=== PATIENT | male | born 1935 | race Caucasian/White ===

== ENCOUNTER 2016-11-23 10:09 | Day surgery (SDC) | payer OTHER ==
[~2016-11-23 10:09] MED LIST: ATOR10TA PO; COUM5TAB PO; LEVA500T PO
[2016-11-23 10:37] VITALS: BP 145/72; PULSE 67; RESP 14; TEMP 97.6; O2SAT 94
[2016-11-23 11:10] VITALS: BP 156/71; PULSE 64; RESP 18; TEMP 98; O2SAT 95
[2016-11-23 11:25] VITALS: BP 151/74; PULSE 65; RESP 18; O2SAT 94
[2016-11-23] MEDS ORDERED: SODIUM BICARBONATE 8.4% INJ 50 ML ONE (12:52)
[2016-11-23] MEDS ORDERED: LIDOCAINE HCL 1% PF 30 ML VIAL ONE (12:52)
[2016-11-23 13:59] LABS: WBC, SYNOVIAL FLUID 1440 /MM3 (0-200)
--- NOTE | 2016-11-23 15:56 | RADRPT ---
EXAM DATE/TIME: 11/23/2016 10:41 [facility] COMPARISON: No previous studies available for comparison. EXTERNAL COMPARISON: [facility], CT RIGHT HIP W/O CONTRAST, Nov 06 2016. INDICATIONS: Right hip effusion. MEDICAL HISTORY: Hypertension. Skin cancer. SURGICAL HISTORY: Pacemaker. Bilateral hip replacement. ENCOUNTER: Initial ACUITY: 1 day PAIN SCORE: 0/10 LOCATION: Right hip. FLUID: Total volume of 4 cc of clear, yellow fluid was removed. Fluid was sent to lab for ordered studies. Post procedure scanning reveals no hematoma or other complication. TECHNIQUE: 1. Ultrasound guidance for needle aspiration. 2. Aspiration. The risks, benefits, and alternatives to ultrasound guided aspiration were explained to the patient i n detail including the risk of bleeding and infection. Written and verbal informed consent was obtai edmund. Under direct ultrasound visualization a 20-gauge needle was placed into the Schmorl's bursal fluid co llection and 5 cc of clear yellow fluid were removed and sent for ordered studies. Office scan revea ls no evidence for hematoma. CONCLUSION: Mr. Serna will talk to his primary care doctor about how to restart his Coumadin which should be r estarted today. Ten Gibson MD FACR on November 23, 2016 at 12:53 Board Certified Radiologist. This report was verified electronically.
== END 2016-11-23 11:55 | disposition home or self-care (01) ==
LOC: HRAD 10:09 → HRIP 10:10 → HRAD 11:55
PROVIDERS: ATTEND Orthopaedic Surgery
DX: M25.451 Effusion, right hip (principal); Z79.01 Long term (current) use of anticoagulants; I10 Essential (primary) hypertension; Z85.828 Personal history of other malignant neoplasm of skin
CPT/HCPCS: 10160; 76942; 87070; 87205; 89051; 89060

== ENCOUNTER 2017-02-25 12:14 | Inpatient (IN) | payer OTHER, MEDICARE ==
[~2017-02-25] VITALS: Ht 175.3 cm; Wt 103.6 kg
[2017-03-12] MEDS ORDERED: WARF-58 PO (14:42)
[2017-03-12] MEDS ORDERED: WARF-20 PO (14:42)
[2017-03-12] MEDS ORDERED: ATOR10TA15 PO (14:42)
[2017-03-13] MEDS ORDERED: BUPIVACAINE LIPOSOME PF 1.3% 20 ML VIAL ONE (07:46)
[2017-03-13] MEDS ORDERED: SODIUM CHLORID 0.9% 500 ML IV PRN (08:30)
[2017-03-13] MEDS ORDERED: METOPROLOL TARTRATE 25 MG TAB PO PRN (08:30)
[2017-03-13] MEDS ORDERED: POVIDONE IODINE 5% (ANTISEPSIS KIT) 4 APPLICATIONS EACH NARE PRN (08:30)
[2017-03-13] MEDS ORDERED: INSULIN HUMAN REGULAR 1,000 UNITS/10 ML VIAL SQ PRN (08:30)
[2017-03-13] MEDS ORDERED: CHLORHEXIDINE GLUCONATE 2 % 1 PACK (2 CLOTHS) TOPICAL PRN (08:30)
[2017-03-13] MEDS ORDERED: LACTATED RINGER'S 1000 ML IV PRN (08:30)
[2017-03-13] MEDS ORDERED: ENOX100P SQ (08:36)
[2017-03-13 08:37] VITALS: BP 152/65; PULSE 68; RESP 20; TEMP 98; O2SAT 95
[2017-03-13 08:54] LABS: INTERNATIONAL NORMALIZED RATIO 1.1 RATIO; PROTHROMBIN TIME - PATIENT 12.1 SEC (9.8-11.6)
[2017-03-13] MEDS ORDERED: ceFAZolin 2 GM PREMIX 50 ML ONE (08:56)
[2017-03-13] MEDS ORDERED: SODIUM CHLORIDE 0.9% INJ 100 ML ONE (08:56)
[2017-03-13] MEDS ORDERED: VANCOMYCIN HCL 1000 MG VIAL ONE (08:56)
[2017-03-13] MEDS ORDERED: DEXAMETHASONE SOD PHOS 20 MG/5 ML VIAL ONE (08:56)
[2017-03-13] MEDS ORDERED: SODIUM CHLORIDE 0.9% IV SCH ×2 (09:30→15:00)
[2017-03-13] MEDS ORDERED: ROPIVACAINE PERI-ARTICULAR INJECTION. P-ARTICULR SCH ×5 (09:30)
[2017-03-13] MEDS ORDERED: VANCOMYCIN 1000 MG/NS 250 ML (for <70 kg) IV SCH ×2 (09:30)
[2017-03-13] MEDS ORDERED: CHLORHEXIDINE GLUCONATE 4% SOLN 120 ML BTL TOPICAL SCH (09:30)
[2017-03-13] MEDS ORDERED: POVIDONE IODINE 7.5% SCRUB 118 ML BOTTLE TOPICAL SCH (09:30)
[2017-03-13] MEDS ORDERED: TRANEXAMIC ACID IV SCH ×2 (09:30→15:00)
[2017-03-13] MEDS ORDERED: ceFAZolin 2 GM PREMIX 50 ML IV SCH (09:30)
[2017-03-13] MEDS ORDERED: PROPOFOL 200 MG/20 ML AMP IV ONE (09:33)
[2017-03-13] MEDS ORDERED: ONDANSETRON HCL 4 MG/2 ML VIAL IV PUSH ONE (09:34)
[2017-03-13] MEDS ORDERED: LACTATED RINGER'S 1000 ML INJ 2,000 ML IV ONE (09:34)
[2017-03-13] MEDS ORDERED: DEXAMETHASONE SOD PHOS 20 MG/5 ML VIAL IV ONE (10:00)
[2017-03-13] MEDS ORDERED: ACETAMINOPHEN 1000 MG/100 ML VIAL IV ONE (11:35)
[2017-03-13] MEDS ORDERED: FAMOTIDINE 20 MG/2 ML VIAL ONE (11:35)
[2017-03-13] MEDS ORDERED: GENTAMICIN SULFATE 80 MG/2 ML VIAL IRRIGATION ONE (12:39)
[2017-03-13] MEDS: SODIUM CHLOR 0.9% 1000 ML INJ 1,000 ML IV SCH (13:43)
[2017-03-13] MEDS ORDERED: diphenhydrAMINE HCL 50 MG/ML VIAL IV PRN (13:45)
[2017-03-13] MEDS ORDERED: ACETAMINOPHEN/HYDROcodone 325 MG/5 MG TAB PO PRN (13:45)
[2017-03-13] MEDS ORDERED: MAGNESIUM HYDROXIDE SUSP 30 ML CUP PO PRN (13:45)
[2017-03-13] MEDS ORDERED: Post-op Orders (for Pharmacy) MISC XX ONE (13:45)
[2017-03-13] MEDS ORDERED: MORPHINE SULFATE 4 MG/ML INJ IV PUSH PRN (13:45)
[2017-03-13] MEDS ORDERED: ALUMINUM/MAGNESIUM/SIMETH 30 ML CUP PO PRN (13:45)
[2017-03-13] MEDS ORDERED: NALOXONE HCL 0.4 MG/ML AMP IV PRN (13:45)
[2017-03-13] MEDS ORDERED: ONDANSETRON HCL 4 MG/2 ML VIAL IVP PRN (13:45)
[2017-03-13] MEDS ORDERED: BISACODYL 10 MG SUPP RECTAL PRN (13:45)
[2017-03-13] MEDS ORDERED: ZOLPIDEM TARTRATE 5 MG TAB PO PRN (13:45)
[2017-03-13] MEDS ORDERED: SODIUM CHLORIDE 0.9% FLUSH 5 ML FLUSH IVF PRN (13:45)
--- NOTE | 2017-03-13 13:48 | PD.OP ---
cc: Richie Padilla MD Operative Report Date of Surgery: March 13, 2017 Preoperative Diagnosis: Right knee severe osteoarthritis Postoperative Diagnosis: Same Procedure: Right total knee arthroplasty Anesthesia: Adductor canal block and general Surgeon: Richie Padilla Horse Identifier(s): PHILIP Gill The surgical procedure was assisted by my Advanced Registered Nurse Practitioner. My COREMAKER presence was necessary throughout this case for the manipulation and positioning of the surgical extremity. My COREMAKER was assisting me throughout the duration of this procedure. The skill set of an Advance Registered Nurse Practitioner was medically necessary to complete this procedure. During the surgical case, the surgical garment assembler was working at the back table and the Advance Registered Nurse Practitioner was directly assisting me. Operation and Findings: IMPLANTS: DePuy Attune: Patella: size 35. Femur, posterior stabilized size 5. Tibia, rotating platform size 5. Tibial insert, rotating platform, posterior stabilized size 7 mm thickness. ESTIMATED BLOOD LOSS: 150 cc TOURNIQUET TIME: 42 minutes at 250 mmHg pressure. JUSTIFICATION FOR PROCEDURE: The patient has end-stage osteoarthritis to the knee. There is an attached conservative measures pathway form in the chart that describes the nonoperative measures that were undertaken prior to consideration of surgical management. The patient understood the risks and benefits of surgical management. See my office notes for further details PROCEDURE: The patient was brought back to the operative theatre. Adequate anesthesia was obtained. The patient received intravenous vancomycin and Ancef. The lower extremity was prepped and draped in the usual sterile fashion.The leg was exsanguinated, the tourniquet was raised. A standard anterior incision was performed followed by medial parapatellar arthrotomy was performed. End-stage arthritis was identified. Osteotomy of the patella was performed. We drilled holes for the patella. We trialed the patella component. We placed an intramedullary guide into the distal femur. We ultimately resected 13 mm off of the distal femur in 5 degrees of valgus. The remnants of the ACL and PCL were resected. Osteotomy of the proximal tibia was performed, resecting 7 mm off of the medial side. This was done with 3 degrees of posterior slope using an extramedullary guide. The distal end of the guide was placed in the mid aspect of the ankle. The femur was sized, and four chamfer cuts were completed in 3 of external rotation. We then cut the central box in the distal femur to replace the PCL. We resected the remnants of the menisci and removed osteophytes off of the femur and tibia. We then trialed the knee. We punched the tibia for the keel, and then used standard technique to cement in components. Excess cement was removed. We trialed the knee again and the final polyethylene thickness was chosen to provide extension to 0 degrees, and flexion of 140 degrees to gravity. The ligaments were appropriately balanced after recessing the popliteus tendon due to tightness on the lateral side. Lateral release was not necessary to obtain excellent patellofemoral tracking. The tourniquet was released and adequate hemostasis was obtained. An intra- articular injection of a ropivacaine cocktail was injected. The posterior knee was inspected for excess cement, which was removed. The final polyethylene was put into position after thorough irrigation. We then closed deep fascia with a #2 Stratafix followed by skin with 2-0 Vicryl followed by gareth. Postop plan is to weight-bear as tolerated. DVT prophylaxis will be performed with SCDs, MAURA cook, early mobilization, and resuming outpatient Coumadin along with a bridging Lovenox of Lovenox 40 mg daily. The Lovenox will be stopped when the INR is equal to or greater than 2. Richie Padilla MD March 13, 2017 13:48
[2017-03-13] MEDS ORDERED: NORC5TAB PO (13:50)
[2017-03-13] MEDS ORDERED: ENOX40P SQ (13:50)
[2017-03-13] MEDS ORDERED: DO NOT ADM ANY ANTICOAGULANT DRUGS PRN (14:14)
[2017-03-13] MEDS ORDERED: *morphine SULFATE 8 MG/ML PERIprocedure ONLY ONE ×3 (14:19→14:45)
[2017-03-13] MEDS ORDERED: fentaNYL CITRATE 250 MCG/5 ML AMP ONE (14:22)
[2017-03-13] MEDS ORDERED: MIDAZOLAM HCL 2 MG/2 ML VIAL ONE (14:22)
--- NOTE | 2017-03-13 14:56 | RADRPT ---
EXAM DATE/TIME: 03/13/2017 14:35 [facility] COMPARISON: No previous studies available for comparison. INDICATIONS : Right total knee prosthesis. MEDICAL HISTORY : Hypertension. Carcinoma, basal cell. SURGICAL HISTORY : Pacemaker. bilat hip replacement ENCOUNTER: Initial ACUITY: 1 day PAIN SCORE: 3/10 LOCATION: Right knee FINDINGS: Two view examination of the right knee demonstrates no evidence of fracture or dislocation. Right kne e arthroplasty. Postsurgical changes. No hardware loosening. CONCLUSION: Right knee arthroplasty. Ang Goncalves MD on March 13, 2017 at 14:54 Board Certified Radiologist. This report was verified electronically.
[2017-03-13] MEDS ORDERED: *HYDROmorphone PF 1 MG VIAL PERIprocedural Use ONLY ONE ×2 (14:57→15:26)
[2017-03-13] MEDS: WARFARIN SOD 3 MG TAB PO SCH (17:29)
--- NOTE | 2017-03-13 17:39 | PD.CONS ---
HPI Service [facility] Consult Requested By Dr Padilla Reason for Consult medical management Primary Care Physician Slava Garcia Do, MD Diagnoses: History of Present Illness 81 yo male, with PMH of HTN, HLD, Afib with PM in 2009, OA. Patient came to same day surgery for right knee surgery. He denies having any chest pain, sob, n /v/d/c. No urinary complaints. Doesn't have any pain at this time. Review of Systems Except as stated in HPI: all other systems reviewed are Neg Past Family Social History Allergies: Coded Allergies: Latex (Verified Allergy, Severe, Hives, ITCHING, 03/13/17) Past Medical History Afib with PM placement HLD Past Surgical History Bilateral hip surgery AICD placement Reported Medications Reported Meds & Active Scripts Active Lovenox Inj (Enoxaparin Sodium) 40 Mg/0.4 Ml Syr 40 Mg SQ DAILY Stop Lovenox when INR is = or > than 2 [place] (Hydrocodone-Acetaminophen) 5-325 mg Tab 1-2 Tab PO Q4H PRN Reported Lovenox Inj (Enoxaparin Sodium) 100 Mg/Ml Syr 95 Mg SQ Q12HR Warfarin 3 Mg Tab 3 Mg PO MOWEFR Warfarin 4 Mg Tab 4 Mg PO TUTHSASU Atorvastatin (Atorvastatin Calcium) 10 Mg Tab 10 Mg PO HS Family History Says he was adopted and not in tough with his biological parents and siblings Social History Quit smoking 40 years ago. used to smoke 10 cig.day for 10 years Quit ETOH use 30 years ago use to drink beer (1/2 pack daily) Denies illicit drug use. Physical Exam Vital Signs Vital Signs Date Time Temp Pulse Resp B/P Pulse Ox O2 Delivery O2 Flow Rate FiO2 03/13/17 14:45 82 16 141/68 95 Nasal Cannula 2 03/13/17 14:30 79 16 144/71 94 Nasal Cannula 2 03/13/17 14:15 78 16 144/65 93 Nasal Cannula 2 03/13/17 14:12 97.4 82 16 144/62 93 Nasal Cannula 2 03/13/17 08:37 98.0 68 20 152/65 95 Physical Exam GENERAL: This is a very pleasant 81 yo male, well-nourished, well-developed patient, in no apparent distress. SKIN: No rashes, ecchymoses or lesions. Cool and dry. HEAD: Atraumatic. Normocephalic. No temporal or scalp tenderness. EYES: Pupils equal round and reactive. Extraocular motions intact. No scleral icterus. No injection or drainage. ENT: Nose without bleeding, purulent drainage or septal hematoma. Throat without erythema, tonsillar hypertrophy or exudate. Uvula midline. Airway patent. NECK: Trachea midline. No JVD or lymphadenopathy. Supple, nontender, no meningeal signs. CARDIOVASCULAR: Regular rate and rhythm without murmurs, gallops, or rubs. RESPIRATORY: PM in the upper right chest. Clear to auscultation. Breath sounds equal bilaterally. No wheezes, rales, or rhonchi. GASTROINTESTINAL: Abdomen soft, non-tender, nondistended. No hepato-splenomegaly , or palpable masses. No guarding. MUSCULOSKELETAL: S/P right knee surgery. Extremities without clubbing, cyanosis , or edema. No joint tenderness, effusion, or edema noted. No calf tenderness. Negative Homans sign bilaterally. NEUROLOGICAL: Awake and alert. Cranial nerves II through XII intact. Motor and sensory grossly within normal limits. Five out of 5 muscle strength in all muscle groups. Normal speech. Laboratory Laboratory Tests Test 03/13/17 08:28 Prothrombin Time 12.1 Prothromb Time International 1.1 Ratio Blood Type O POSITIVE Antibody Screen NEGATIVE Imaging Last Impressions Knee X-Ray 03/13/17 1343 Signed Impressions: Service Date/Time: Monday, March 13, 2017 14:35 - CONCLUSION: Right knee arthroplasty. Ang Goncalves MD Assessment and Plan Assessment and Plan 81 yo male with: Right knee OA s/p right knee arthroplasty by Dr Randy amos . Management per Dr Padilla. Afib with PM placement 2009. Patient is stable. Coumadin on hold as patient had surgery restart when OK by surgeon HLD: restart atorvastatin. DVT ppx : SCD/teds, restart coumadin when ok per surgeon. Discussed Condition With patient, nurse Caitie Calderon MD March 13, 2017 17:39
[2017-03-13] MEDS ORDERED: ENALAPRILAT 2.5 MG/2 ML VIAL IV PUSH PRN (18:30)
[2017-03-13 19:00] VITALS: BP 158/86; PULSE 84; RESP 20; TEMP 96.9; O2SAT 97
--- NOTE | 2017-03-13 20:16 | HHI.DCPOC ---
Discharge Care Plan Diagnosis: (1) Primary localized osteoarthrosis, lower leg (2) Status post total knee replacement, right Your Health Problems Are: Difficulty with ADL Goals to Promote Your Health * To prevent worsening of your condition and complications * To maintain your health at the optimal level Directions to Meet Your Goals Take your medications as prescribed Follow your dietary instruction Follow activity as directed Keep your appointments as scheduled Take your immunizations and boosters as scheduled If your symptoms worsen call your PCP, if no PCP go to Urgent Care Center or Emergency Room Smoking is Dangerous to Your Health. Avoid second hand smoke Call the 24-hour hour crisis hotline for domestic abuse at Henrique Putnam March 13, 2017 20:16
--- NOTE | 2017-03-13 20:18 | HHI.FF ---
Face to Face Verification Diagnosis: (1) Primary localized osteoarthrosis, lower leg (2) Status post total knee replacement, right Physical Therapy Gait training, Transfer training, bed to chair Knee: Total knee Right LE Weight Bearing: WB as tolerated Right LE Range of Motion: Active ROM Nursing Nursing: Dressing changes Dressing Changes: Daily dressing change Additional Instructions Patient will continue his Warfarin but will bridge with Lovenox until INR is > 2 I have seen patient Douglas Serna on 03/13/17. My clinical findings support the need for the requested home health care services because: Limited ability to care for self High risk of falls I certify that my clinical findings support that this patient is homebound because: Post-op weakness Unsteady gait/balance Henrique Putnam March 13, 2017 20:18
[2017-03-13] MEDS ORDERED: CPMMACHINE (20:21)
[2017-03-13] MEDS: ATORVASTATIN 10 MG TAB PO SCH (21:02)
[2017-03-13] MEDS: SODIUM CHLORIDE 0.9% FLUSH 5 ML FLUSH IVF SCH (21:03)
[2017-03-14] VITALS (7 sets, daily range): BP systolic 112–125; BP diastolic 51–69; PULSE 56–84; RESP 16–18; TEMP 96.2–98.3; O2SAT 95–97
[2017-03-14] MEDS: SODIUM CHLOR 0.9% 1000 ML INJ 1,000 ML IV SCH ×3 (04:38→19:43)
[2017-03-14 05:48] LABS: HEMATOCRIT 38.3 % (39.0-51.0); MEAN CELL VOLUME 84.8 FL (80.0-100.0); PLATELET COUNT 189 TH/MM3 (150-450); RED BLOOD COUNT 4.51 MIL/MM3 (4.50-5.90); RED CELL DISTRIBUTION WIDTH 14.1 % (11.6-17.2); REVIEW FLAG FINAL; WHITE BLOOD COUNT 18.6 TH/MM3 (4.0-11.0)
[2017-03-14 05:59] LABS: INTERNATIONAL NORMALIZED RATIO 1.1 RATIO; PROTHROMBIN TIME - PATIENT 11.7 SEC (9.8-11.6)
[2017-03-14] MEDS ORDERED: DEXAMETHASONE SOD PHOS 20 MG/5 ML VIAL IV ONE (07:45)
[2017-03-14] MEDS: SODIUM CHLORIDE 0.9% FLUSH 5 ML FLUSH IVF SCH ×2 (09:00→21:00)
[2017-03-14] MEDS: ACETAMINOPHEN/HYDROcodone 325 MG/5 MG TAB PO PRN (09:11)
--- NOTE | 2017-03-14 12:04 | PD.ORT.PN ---
Subjective Post Op Day #: 1 Subjective Remarks The patient is OOB in chair with at bedside. Patient reports minimal pain today. Patient states he is planning to go to SNF. Objective Vitals Vital Signs Date Time Temp Pulse Resp B/P Pulse Ox O2 Delivery O2 Flow Rate FiO2 03/14/17 08:00 98.3 84 18 121/55 95 03/14/17 04:00 96.2 56 16 113/51 97 03/14/17 00:00 96.8 65 17 112/68 96 03/13/17 19:00 96.9 84 20 158/86 97 03/13/17 18:00 79 16 154/69 95 Nasal Cannula 2 03/13/17 14:45 82 16 141/68 95 Nasal Cannula 2 03/13/17 14:30 79 16 144/71 94 Nasal Cannula 2 03/13/17 14:15 78 16 144/65 93 Nasal Cannula 2 03/13/17 14:12 97.4 82 16 144/62 93 Nasal Cannula 2 I/O 03/13/17 03/13/17 03/13/17 03/14/17 03/14/17 03/14/17 07:00 15:00 23:00 07:00 15:00 23:00 Intake Total 1350 ml 1753 ml 1245 ml Output Total 475 ml 400 ml 300 ml Balance 875 ml 1353 ml 945 ml Intake Oral 630 ml 480 ml IV Total 1123 ml 765 ml Other 1350 ml Output Urine Total 400 ml 300 ml Estimated Blood Loss 25 ml Other 450 ml # Voids 1 # Bowel Movements 0 0 Result Diagram: 03/14/17 0524 Other Results Laboratory Tests Test 03/14/17 05:24 Prothrombin Time 11.7 SEC (9.8-11.6) Prothromb Time International 1.1 RATIO Ratio Imaging Last 24 hours Impressions Knee X-Ray 03/13/17 1343 Signed Impressions: Service Date/Time: Monday, March 13, 2017 14:35 - CONCLUSION: Right knee arthroplasty. Ang Goncalves MD Procedures Right TKA Objective Remarks The patient's dressings are C/D/I. EHL/TA/G intact. 2+ pedal pulse. Calf is soft and nontender. Minimal swelling. + SILT. INR: 1.1 today Assessment & Plan Ortho Post Op Day #: 1 Problem List: Assessment and Plan POD #1: Right TKA 1. WBAT RLE 2. Resume coumadin for DVT prophylaxis along with a Lovenox bridge. Will discontinue Lovenox when INR >2. 3. Ice to the right knee PRN 4. Anticipatory discharge to SNF on Saturday. Henrique Putnam March 14, 2017 12:04
[2017-03-14] MEDS ORDERED: WALKER WHEELS/F1 MIS (12:36)
[2017-03-14] MEDS ORDERED: COMMODE 3-IN-11 MIS (12:36)
[2017-03-14] MEDS: ENOXAPARIN SODIUM 40 MG/0.4 ML SYRINGE SQ SCH (13:00)
--- NOTE | 2017-03-14 13:58 | HHI.PR ---
Subjective Remarks Follow-up total knee arthroplasty. States he is doing well out of bed to chair pain is tolerable. He has a leukocytosis of 18,000 denies fever, chills, cough , nausea, abdominal pain, diarrhea and UTI symptoms. Seen with . Discussed with RN Objective Vitals Vital Signs Date Time Temp Pulse Resp B/P Pulse Ox O2 Delivery O2 Flow Rate FiO2 03/14/17 12:00 96.8 66 16 123/62 96 03/14/17 08:00 98.3 84 18 121/55 95 03/14/17 04:00 96.2 56 16 113/51 97 03/14/17 00:00 96.8 65 17 112/68 96 03/13/17 19:00 96.9 84 20 158/86 97 03/13/17 18:00 79 16 154/69 95 Nasal Cannula 2 03/13/17 14:45 82 16 141/68 95 Nasal Cannula 2 03/13/17 14:30 79 16 144/71 94 Nasal Cannula 2 03/13/17 14:15 78 16 144/65 93 Nasal Cannula 2 03/13/17 14:12 97.4 82 16 144/62 93 Nasal Cannula 2 I/O 03/13/17 03/13/17 03/13/17 03/14/17 03/14/17 03/14/17 07:00 15:00 23:00 07:00 15:00 23:00 Intake Total 1350 ml 1753 ml 1245 ml Output Total 475 ml 400 ml 300 ml Balance 875 ml 1353 ml 945 ml Intake Oral 630 ml 480 ml IV Total 1123 ml 765 ml Other 1350 ml Output Urine Total 400 ml 300 ml Estimated Blood Loss 25 ml Other 450 ml # Voids 1 # Bowel Movements 0 0 Result Diagram: 03/14/17 0524 Imaging Last Impressions Knee X-Ray 03/13/17 1343 Signed Impressions: Service Date/Time: Monday, March 13, 2017 14:35 - CONCLUSION: Right knee arthroplasty. Ang Goncalves MD Objective Remarks GENERAL: This is a very pleasant 81 yo male, well-nourished, well-developed patient, in no apparent distress. SKIN: No rashes, ecchymoses or lesions. Cool and dry. HEAD: Atraumatic. Normocephalic. No temporal or scalp tenderness. EYES: Pupils equal round and reactive. Extraocular motions intact. No scleral icterus. No injection or drainage. ENT: Nose without bleeding, purulent drainage or septal hematoma. Throat without erythema, tonsillar hypertrophy or exudate. Uvula midline. Airway patent. NECK: Trachea midline. No JVD or lymphadenopathy. Supple, nontender, no meningeal signs. CARDIOVASCULAR: Regular rate and rhythm without murmurs, gallops, or rubs. RESPIRATORY: PM in the upper right chest. Clear to auscultation. Breath sounds equal bilaterally. No wheezes, rales, or rhonchi. GASTROINTESTINAL: Abdomen soft, non-tender, nondistended. No hepato-splenomegaly , or palpable masses. No guarding. MUSCULOSKELETAL: S/P right knee surgery. Extremities without clubbing, cyanosis , or edema. No joint tenderness, effusion, or edema noted. No calf tenderness. Negative Homans sign bilaterally. NEUROLOGICAL: Awake and alert. Cranial nerves II through XII intact. Motor and sensory grossly within normal limits. Five out of 5 muscle strength in all muscle groups. Normal speech. Nonfocal A/P Problem List: (1) Primary localized osteoarthrosis, lower leg ICD Code: M17.10 Status: Acute (2) Status post total knee replacement, right ICD Code: Z96.651 Status: Acute Assessment and Plan 81 yo male with: Right knee OA s/p right knee arthroplasty by Dr Randy amos . Stable continue postoperative care with physical therapy, wound care, incentive spirometry, pain management with hydrocodone and DVT prophylaxis with Coumadin. Management per Dr Padilla. Leukocytosis likely reactive. Monitor for infection check temperature. Repeat CBC in the morning. Afib with PM placement 2009. Patient is stable. Continue Coumadin RN to clarify with orthopedic surgery therapeutic range for INR prefer to be between 2 and 3 HLD: restart atorvastatin. DVT ppx : SCD/teds, Coumadin. Shankar Gallo MD March 14, 2017 13:58 Assessment and Plan 81 yo male with: Right knee OA s/p right knee arthroplasty by Dr Randy amos . Management per Dr Padilla. Afib with PM placement 2009. Patient is stable. Coumadin on hold as patient had surgery restart when OK by surgeon HLD: restart atorvastatin. DVT ppx : SCD/teds, restart coumadin when ok per surgeon. Shankar Gallo MD March 14, 2017 13:58
[2017-03-14] MEDS ORDERED: WARFARIN SOD 4 MG TAB PO SCH (16:00)
[2017-03-14] MEDS: DOCUSATE SODIUM 100 MG CAP PO SCH (22:02)
[2017-03-14] MEDS: MULTIVITAMINS/MINERALS THERAPEUTIC TAB PO SCH (22:02)
[2017-03-14] MEDS: ATORVASTATIN 10 MG TAB PO SCH (22:02)
[2017-03-15] VITALS: BP 123/65; PULSE 67; RESP 17; TEMP 99.3; O2SAT 93
[2017-03-15] MEDS: SODIUM CHLOR 0.9% 1000 ML INJ 1,000 ML IV SCH ×3 (02:07→20:05)
[2017-03-15 06:49] LABS: INTERNATIONAL NORMALIZED RATIO 1.1 RATIO; PROTHROMBIN TIME - PATIENT 11.9 SEC (9.8-11.6)
[2017-03-15 06:51] LABS: HEMATOCRIT 36.2 % (39.0-51.0); MEAN CELL VOLUME 85.8 FL (80.0-100.0); MEAN CORPUSCULAR HEMOGLOBIN 27.6 PG (27.0-34.0); MEAN CORPUSCULAR HGB CONC 32.2 % (32.0-36.0); PLATELET COUNT 162 TH/MM3 (150-450); RED BLOOD COUNT 4.22 MIL/MM3 (4.50-5.90); RED CELL DISTRIBUTION WIDTH 14.3 % (11.6-17.2); REVIEW FLAG FINAL; WHITE BLOOD COUNT 12.4 TH/MM3 (4.0-11.0)
[2017-03-15 08:00] VITALS: BP 109/48; PULSE 59; RESP 16; TEMP 97.4; O2SAT 94
[2017-03-15] MEDS: DOCUSATE SODIUM 100 MG CAP PO SCH ×2 (08:39→20:02)
[2017-03-15] MEDS: ACETAMINOPHEN/HYDROcodone 325 MG/5 MG TAB PO PRN ×3 (08:39→15:55)
[2017-03-15] MEDS: MULTIVITAMINS/MINERALS THERAPEUTIC TAB PO SCH ×2 (08:39→20:03)
[2017-03-15] MEDS: SODIUM CHLORIDE 0.9% FLUSH 5 ML FLUSH IVF SCH ×2 (08:40→20:05)
[2017-03-15 12:28] VITALS: BP 118/55; PULSE 61; RESP 16; TEMP 97.9; O2SAT 95
[2017-03-15] MEDS: ENOXAPARIN SODIUM 40 MG/0.4 ML SYRINGE SQ SCH (12:42)
--- NOTE | 2017-03-15 15:25 | PD.ORT.PN ---
Subjective Subjective Remarks feels good. + pain well controlled,. last night + some pain Objective Vitals Vital Signs Date Time Temp Pulse Resp B/P Pulse Ox O2 Delivery O2 Flow Rate FiO2 03/15/17 12:28 97.9 61 16 118/55 95 03/15/17 08:00 97.4 59 16 109/48 94 03/15/17 00:00 99.3 67 17 123/65 93 03/14/17 22:00 Room Air 03/14/17 19:45 95 03/14/17 19:00 97.9 77 16 120/69 95 03/14/17 16:00 98.1 68 16 125/66 95 I/O 03/14/17 03/14/17 03/14/17 03/15/17 03/15/17 03/15/17 07:00 15:00 23:00 07:00 15:00 23:00 Intake Total 1245 ml 1080 ml 480 ml 240 ml Output Total 300 ml 300 ml 600 ml 600 ml Balance 945 ml 780 ml -120 ml -360 ml Intake Oral 480 ml 1080 ml 480 ml 240 ml IV Total 765 ml Output Urine Total 300 ml 300 ml 600 ml 600 ml # Bowel Movements 0 0 0 Result Diagram: 03/15/17 0606 Other Results Laboratory Tests Test 03/15/17 06:06 Prothrombin Time 11.9 SEC (9.8-11.6) Prothromb Time International 1.1 RATIO Ratio Imaging Last 24 hours Impressions Knee X-Ray 03/13/17 1343 Signed Impressions: Service Date/Time: Monday, March 13, 2017 14:35 - CONCLUSION: Right knee arthroplasty. Ang Goncalves MD Procedures Right TKA Objective Remarks The patient's incision is C/D/I. scant drainage, very min hyperemia on medial aspect of the incision. EHL/TA/G intact. 2+ pedal pulse. Calf is soft and nontender. Minimal swelling. + SILT. INR: 1.1 today Assessment & Plan Assessment and Plan POD #2: Right TKA 1. WBAT RLE 2. Resume coumadin for DVT prophylaxis along with a Lovenox bridge (for a.fib) . Will discontinue Lovenox when INR >2 (orders written on d/c paperwork). 3. Ice to the right knee PRN 4. Anticipatory discharge to SNF on Saturday. Richie Padilla MD March 15, 2017 15:25
[2017-03-15] MEDS: WARFARIN SOD 3 MG TAB PO SCH (15:55)
[2017-03-15 16:00] VITALS: BP 101/49; PULSE 54; RESP 16; TEMP 97.2; O2SAT 96
[2017-03-15] MEDS: ATORVASTATIN 10 MG TAB PO SCH (20:02)
[2017-03-15 20:20] VITALS: BP 138/65; PULSE 65; RESP 17; TEMP 97.9; O2SAT 96
--- NOTE | 2017-03-15 23:55 | HHI.PR ---
Subjective Remarks Patient seen the morning of 03/15. Patient says he is feeling all right. Is looking for to leaving hospital. Laxatives given.denies any chest pain or shortness of breath. Objective Vital Signs Date Time Temp Pulse Resp B/P Pulse Ox O2 Delivery O2 Flow Rate FiO2 03/15/17 20:20 97.9 65 17 138/65 96 03/15/17 16:00 97.2 54 16 101/49 96 03/15/17 12:28 97.9 61 16 118/55 95 03/15/17 08:00 97.4 59 16 109/48 94 03/15/17 00:00 99.3 67 17 123/65 93 I/O 03/14/17 03/14/17 03/14/17 03/15/17 03/15/17 03/15/17 07:00 15:00 23:00 07:00 15:00 23:00 Intake Total 1245 ml 1080 ml 480 ml 240 ml 980 ml 240 ml Output Total 300 ml 300 ml 600 ml 600 ml Balance 945 ml 780 ml -120 ml -360 ml 980 ml 240 ml Intake Oral 480 ml 1080 ml 480 ml 240 ml 980 ml 240 ml IV Total 765 ml Output Urine Total 300 ml 300 ml 600 ml 600 ml # Voids 4 1 # Bowel Movements 0 0 0 0 Result Diagram: 03/15/17 0606 Objective Remarks GENERAL: patient lying in bed. Appears comfortable. SKIN: Warm and dry. HEAD: Normocephalic. EYES: No scleral icterus. No injection or drainage. NECK: Supple, trachea midline. No JVD or lymphadenopathy. CARDIOVASCULAR: Regular rate and rhythm without murmurs, gallops, or rubs. RESPIRATORY: Breath sounds equal bilaterally. No accessory muscle use. GASTROINTESTINAL: Abdomen soft, non-tender, nondistended. MUSCULOSKELETAL: No cyanosis, or edema. Right knee not examined. Peripheral perfusion intact. BACK: Nontender without obvious deformity. No CVA tenderness. A/P Assessment and Plan //Right knee OA s/p right knee arthroplasty by Dr Randy amos . Stable continue postoperative care with physical therapy, wound care, incentive spirometry, pain management with hydrocodone and DVT prophylaxis with Coumadin. Management per orthopedic surgery.. //Leukocytosis likely reactive. Improved. 18.6 on 03/14, now 12.4. Monitor for infection check temperature. Repeat CBC in the morning. //Afib with PM placement 2009. Patient is stable. Continue Coumadin RN to clarify with orthopedic surgery therapeutic range for INR prefer to be between 2 and 3. INR 1.1. Subtherapeutic. Anticoagulation as per surgical service. //HLD: contt atorvastatin. //DVT ppx : SCD/teds, Coumadin. Discharge Planning as per primary service Geraldo Olmedo MD March 15, 2017 23:55
[2017-03-16 00:20] VITALS: BP 126/60; PULSE 63; RESP 17; TEMP 98.9; O2SAT 96
[2017-03-16 07:02] LABS: HEMATOCRIT 35.2 % (39.0-51.0); MEAN CELL VOLUME 85.1 FL (80.0-100.0); MEAN CORPUSCULAR HGB CONC 32.9 % (32.0-36.0); PLATELET COUNT 164 TH/MM3 (150-450); RED BLOOD COUNT 4.14 MIL/MM3 (4.50-5.90); RED CELL DISTRIBUTION WIDTH 14.3 % (11.6-17.2); REVIEW FLAG FINAL; WHITE BLOOD COUNT 9.9 TH/MM3 (4.0-11.0)
[2017-03-16 07:15] LABS: INTERNATIONAL NORMALIZED RATIO 1.1 RATIO
[2017-03-16 08:00] VITALS: BP 121/60; PULSE 59; RESP 22; TEMP 98.4; O2SAT 94
--- NOTE | 2017-03-16 08:45 | PD.ORT.PN ---
Subjective Post Op Day #: 3 Subjective Remarks Patient sitting upright in chair. Admits right knee pain well controlled. Admits to constipation. Feels ready to be discharged today to rehab center. Objective Vitals Vital Signs Date Time Temp Pulse Resp B/P Pulse Ox O2 Delivery O2 Flow Rate FiO2 03/16/17 08:00 98.4 59 22 121/60 94 03/16/17 00:20 98.9 63 17 126/60 96 03/15/17 20:20 97.9 65 17 138/65 96 03/15/17 16:00 97.2 54 16 101/49 96 03/15/17 12:28 97.9 61 16 118/55 95 I/O 03/15/17 03/15/17 03/15/17 03/16/17 03/16/17 03/16/17 07:00 15:00 23:00 07:00 15:00 23:00 Intake Total 240 ml 980 ml 240 ml 240 ml Output Total 600 ml 800 ml Balance -360 ml 980 ml 240 ml -560 ml Intake Oral 240 ml 980 ml 240 ml 240 ml Output Urine Total 600 ml 800 ml # Voids 4 1 # Bowel Movements 0 0 0 Result Diagram: 03/16/17 0624 Other Results Laboratory Tests Test 03/16/17 06:24 Prothrombin Time 12.0 SEC (9.8-11.6) Prothromb Time International 1.1 RATIO Ratio Imaging Last 24 hours Impressions Knee X-Ray 03/13/17 1343 Signed Impressions: Service Date/Time: Monday, March 13, 2017 14:35 - CONCLUSION: Right knee arthroplasty. Ang Goncalves MD Procedures Right TKA Objective Remarks The patient's incision is C/D/I. scant drainage, very min hyperemia on medial aspect of the incision. EHL/TA/G intact. 2+ pedal pulse. Calf is soft and nontender. Minimal swelling. + SILT. INR: 1.1 today Assessment & Plan Ortho Post Op Day #: 3 Problem List: (1) Status post total knee replacement, right (2) Primary localized osteoarthrosis, lower leg Assessment and Plan POD #3: Right TKA 1. WBAT RLE 2. Resume coumadin for DVT prophylaxis along with a Lovenox bridge (for a.fib) . Will discontinue Lovenox when INR >2 (orders written on d/c paperwork). 3. Ice to the right knee PRN 4. Orthopedic clear for discharge to SNF today. Wendy French March 16, 2017 08:45
[2017-03-16] MEDS: MULTIVITAMINS/MINERALS THERAPEUTIC TAB PO SCH (09:00)
[2017-03-16] MEDS: SODIUM CHLORIDE 0.9% FLUSH 5 ML FLUSH IVF SCH (09:00)
[2017-03-16] MEDS: DOCUSATE SODIUM 100 MG CAP PO SCH (09:00)
[2017-03-16 09:42] VITALS: O2SAT 95
[2017-03-16] MEDS: ACETAMINOPHEN/HYDROcodone 325 MG/5 MG TAB PO PRN (10:15)
[2017-03-16 12:00] VITALS: BP 135/63; PULSE 79; RESP 22; TEMP 96.1; O2SAT 95
[2017-03-16] MEDS: ENOXAPARIN SODIUM 40 MG/0.4 ML SYRINGE SQ SCH (12:29)
[2017-03-16] MEDS ORDERED: MAGNESIUM HYDROXIDE SUSP 30 ML CUP PO ONE (12:45)
[2017-03-16] MEDS ORDERED: DOCUSATE SODIUM 50 MG/SENNA 8.6 MG TAB PO ONE (12:45)
--- NOTE | 2017-03-19 14:29 | HHI.DS ---
Discharge Summary Admission Date March 13, 2017 at 07:42 Discharge Date: March 16, 2017 Admitting Diagnosis Primary localized OA, lower leg Status post total knee replacement, Right Diagnosis: (1) Status post total knee replacement, right Diagnosis: Principal (2) Primary localized osteoarthrosis, lower leg Diagnosis: Principal Procedures Right TKA Brief History This is a 81 year old male patient with severe OA of the right knee CBC/BMP: 03/16/17 0624 PE at Discharge The patient's incision is C/D/I. scant drainage, very min hyperemia on medial aspect of the incision. EHL/TA/G intact. 2+ pedal pulse. Calf is soft and nontender. Minimal swelling. + SILT. INR: 1.1 today Hospital Course The patient was admitted with severe OA of the right knee to have a right TKA. The patient's surgery went well without complication. The patient is WBAT on the LLE. The patient is on a regular diet. The patient was placed back on his Warfarin with a lovenox bridge until therapeutic for DVT prophylaxis. The patient was discharged to a SNF and will f/u with Dr. Padilla in 1-2 weeks. Pt Condition on Discharge: Stable Discharge Disposition: Discharge to SNF Discharge Instructions Diet Instructions: As Tolerated, No Restrictions Activities You Can Perform: Weight Bearing as Uma Activities to Avoid: Strenuous Activity Follow up Referrals: Orthopedics with Richie Padilla MD SNF/[facility]/ with [facility] New Medications: Commode 3-in-1 (Commode 3-in-1) 1 Mis Mis 1 EA .ROUTE DIRECTED #1 Ref 0 EA CPM-Continuous Passive Motion Machine (CPM-Continuous Passive Motion Machine) 1 Ea Device 1 EA .ROUTE DIRECTED #1 Ref 0 EA Enoxaparin Inj (Lovenox Inj) 40 Mg/0.4 Ml Syr 40 MG SQ DAILY Stop Lovenox when INR is = or > than 2 Blood Clot Prevention #5 Ref 0 SYRINGE Hydrocodone-Acetaminophen ([place]) 5-325 mg Tab 1-2 TAB PO Q4H PRN PAIN #60 Ref 0 TAB Walker with Front Wheels (Walker with Front Wheels) 1 Mis Mis 1 EA .ROUTE DIRECTED #1 Ref 0 EA Continued Medications: Atorvastatin (Atorvastatin) 10 Mg Tab 10 MG PO HS Cholesterol Management #30 Ref 0 TAB Warfarin (Warfarin) 4 Mg Tab 4 MG PO [id number] Blood Clot Prevention #30 Ref 0 TAB Warfarin (Warfarin) 3 Mg Tab 3 MG PO MOWEFR Blood Clot Prevention #30 Ref 0 TAB Discontinued Medications: Enoxaparin Inj (Lovenox Inj) 100 Mg/Ml Syr 95 MG SQ Q12HR Blood Clot Prevention Ref 0 SYRINGE Henrique Putnam March 19, 2017 14:29
== END 2017-03-16 13:40 | DRG 470 ==
LOC: HSDI 03-13 07:42 → N06B 03-13 18:31
PROVIDERS: ADMIT Orthopaedic Surgery; ATTEND Orthopaedic Surgery
PROC: 3E0T3CZ (ICD-10-PCS; 2017-03-13)
PROC: 0SRC0J9 Replacement of Right Knee Joint with Synthetic Substitute, Cemented, Open Approach (ICD-10-PCS; principal; 2017-03-13 11:39)
DX: M17.11 Unilateral primary osteoarthritis, right knee (principal); I48.91 Unspecified atrial fibrillation; I10 Essential (primary) hypertension; E78.5 Hyperlipidemia, unspecified; Z95.810 Presence of automatic (implantable) cardiac defibrillator; Z87.891 Personal history of nicotine dependence; Z79.01 Long term (current) use of anticoagulants
CPT/HCPCS: 73560; 85027; 85610; 86850; 86900; 86901; 94150; C1776; C9290; J0131; J0171; J0690; J0735; J1100; J1170; J1580; J1650; J1885; J2250; J2270; J2405; J2795; J3010; J3370; J7030; J7050; J7120; L1830